=== PATIENT | female | born 1990 | race Caucasian/White ===

== ENCOUNTER 2021-09-22 17:48 | Emergency (ER) | payer OTHER, SELFPAY ==
[2021-09-22] VITALS (7 sets, daily range): BP systolic 110–133; BP diastolic 56–76; PULSE 59–73; RESP 14–16; TEMP 36.4; O2SAT 98–100; BMI 30.4
[2021-09-22 20:00] LABS: Alanine Aminotransferase 33 IU/L (<35); Albumin 4.7 g/dL (3.5-5.0); Albumin Globulin Ratio 1.3 (1.0-2.8); Alkaline Phosphatase 68 U/L (38-126); Aspartate Aminotransferase 29 IU/L (14-36); Bilirubin Total 0.4 mg/dL (0.2-1.3); Blood Urea Nitrogen 7 mg/dL (7-17); Calcium 9.5 mg/dL (8.4-10.2); Carbon Dioxide 25 mmol/L (22-32); Chloride 103 mmol/L (98-107); Estimated Glomerular Filt Rate > 60 mL/min (>60); Globulin 3.6 g/dL (1.7-4.1); Glucose 95 mg/dL (70-100); HEMOLYSIS < 15 (0-50); Lipase 78 U/L (23-300); Potassium 4.2 mmol/L (3.4-5.1); Sodium 140 mmol/L (137-145); Total Protein 8.3 g/dL (6.3-8.2)
[2021-09-22 20:01] LABS: Add Manual Diff / Slide Review NO; Basophils Absolute Auto 100 /uL (0-100); Basophils Percent Auto 1.4 % (0-2); Eosinophils Absolute Auto 200 /uL (0-450); Eosinophils Percent Auto 2.5 % (2-4); Hematocrit 38.2 % (36-46); Hemoglobin 13.2 g/dL (12.0-16.0); Lymphocytes Absolute Auto 2200 /uL (1100-4500); Lymphocytes Percent Auto 34.2 % (25-40); Mean Corpuscular HGB Conc 34.6 % (30-36); Mean Corpuscular Hemoglobin 29.3 PG (26-34); Mean Corpuscular Volume 84.8 fL (80-100); Monocytes Absolute Auto 400 /uL (0-900); Monocytes Percent Auto 6.8 % (3-14); Neutrophils Absolute Auto 3500 /uL (1500-7000); Neutrophils Percent Auto 55.1 % (50-75); Platelet Count 335 X10^3/uL (150-400); Red Cell Distribution Width 12.8 % (11.6-14.8); White Blood Cell Count 6.4 X10^3/uL (4.5-11.0)
[2021-09-22] MEDS: KETOROLAC 30 MG/ML VIAL 15 MG IV (23:27)
--- NOTE | 2021-09-22 23:30 | ED_ITS ---
HPI - Abdominal Pain General Chief Complaint: Abdominal Pain Stated Complaint: Sent from urgent, has unusual stomach bubble Time Seen by Provider: 09/22/21 18:56 Source: patient Mode of arrival: Ambulatory Limitations: no limitations History of Present Illness HPI narrative: This is a 30-year-old female comes in with complaint of left flank and abdominal pain that started the last several days it has been intermittent waxing and waning in intensity it was a sudden onset. No fevers or chills. She has had some nausea no vomiting. No diarrhea constipation. She has an appreciate any hematuria, dysuria urgency or frequency. No vaginal bleeding or discharge. She has had a kidney stone very remotely and does not recall if this is similar. She takes medications for mood. Patient denies any allergies. No tobacco, alcohol or illicit. She came here today because her primary care physician did x-ray and saw a weird bubble on her abdominal x-ray. Related Data Previous Rx's Medication Instructions Recorded ciprofloxacin HCl 500 mg tablet 500 mg PO Q12H #20 tab 09/23/21 phenazopyridine 100 mg tablet 100 mg PO TID PRN #6 tab 09/23/21 (Pyridium) Allergies Allergy/AdvReac Type Severity Reaction Status Date / Time No Known Drug Allergies Allergy Verified 09/22/21 18:01 Review of Systems Review of Systems ROS Unobtainable: All systems reviewed & are unremarkable except as noted in HPI and below Patient History Social History Smoking Status: Former smoker Smoking Status: Former smoker Substance Use Type: does not use Exam Narrative Exam Narrative: GENERAL: Alert and oriented x three, female in mild distress. HEENT: Head normocephalic, atraumatic, EOMI, pupils reactive, face symmetric, moist mucous membranes NECK: Supple, full range of motion CARDIOVASCULAR: Regular rate and rhythm without murmurs, rubs or gallops. RESPIRATORY: Breath sounds equal bilaterally, no wheezes rales or rhonchi. ABDOMEN: Soft, nontender. Normoactive bowel sounds all 4 quadrants. No guarding or rebound, rigidity, no mass : No CVA tenderness EXTREMITIES: Normal range of motion, no clubbing or edema. Neurovascularly intact NEUROLOGICAL: Cranial nerves II through XII grossly intact. Moving all extremities SKIN: Warm, dry, no petechiae, no rashes or lesions. Initial Vital Signs Initial Vital Signs: Vital Signs Temperature 97.6 F 09/22/21 18:02 Pulse Rate 73 09/22/21 18:02 Respiratory Rate 16 09/22/21 18:02 Blood Pressure 133/76 09/22/21 18:02 Pulse Oximetry 100 09/22/21 18:02 Course Orders Ordered: Discontinued Medications Ciprofloxacin (Ciprofloxacin 250 Mg Tablet) 500 mg PO NOW ONE Stop: 09/23/21 02:00 Last Admin: 09/23/21 02:06 Dose: 500 mg Documented by: [email or web address] Ketorolac Tromethamine (Ketorolac 30 Mg/Ml Vial) 15 mg IV NOW ONE Stop: 09/22/21 23:24 Last Admin: 09/22/21 23:27 Dose: 15 mg Documented by: NIDA Phenazopyridine HCl (Phenazopyridine 100 Mg Tablet) 100 mg PO NOW ONE Stop: 09/23/21 02:00 Last Admin: 09/23/21 02:06 Dose: 100 mg Documented by: [email or web address] Reevaluation(s) Reevaluation #1: Patient states she is now having some dysuria. Discussed her findings today, possible infection she does have some bacteria in her urine and blood cells. No other clear cause was found she with flank pain which treat her for a pyelonephritis at this time. Patient would like to also take some Pyridium. Patient was given 1st dose of oral antibiotic with return precautions. Time: 02:02 Vital Signs Vital signs: Vital Signs - 8 hr 09/22/21 21:35 09/22/21 22:00 09/22/21 22:30 Pulse Rate 66 59 L 66 Respiratory Rate 16 Blood Pressure 121/66 113/56 L 110/67 Pulse Oximetry 100 99 99 09/22/21 23:00 Pulse Rate 66 Respiratory Rate Blood Pressure 117/65 Pulse Oximetry 98 MDM - Abdominal Pain Lab Data Result diagrams: 09/22/21 19:30 09/22/21 19:30 Labs: Lab Results 09/22/21 09/22/21 09/22/21 Range/Units 19:30 19:30 23:32 WBC 6.4 (4.5-11.0) X10^3/uL RBC 4.50 (4.0-5.2) X10^6/uL Hgb 13.2 (12.0-16.0) g/dL Hct 38.2 (36-46) % MCV 84.8 (80-100) fL MCH 29.3 (26-34) PG MCHC 34.6 (30-36) % RDW 12.8 (11.6-14.8) % Plt Count 335 (150-400) X10^3/uL Neut % (Auto) 55.1 (50-75) % Lymph % (Auto) 34.2 (25-40) % [place] % (Auto) 6.8 (3-14) % Eos % (Auto) 2.5 (2-4) % Baso % (Auto) 1.4 (0-2) % Neut # (Auto) 3500 (0545-2775) /uL Lymph # (Auto) 2200 (8354-2203) /uL [place] # (Auto) 400 (0-900) /uL Eos # (Auto) 200 (0-450) /uL Baso # (Auto) 100 (0-100) /uL Sodium 140 (137-145) mmol/L Potassium 4.2 (3.4-5.1) mmol/L Chloride 103 (98-107) mmol/L Carbon Dioxide 25 (22-32) mmol/L BUN 7 (7-17) mg/dL Creatinine 0.78 (0.52-1.04) mg/dL Estimated GFR > 60 (>60) mL/min BUN/Creatinine Ratio 9.0 (6-22) Glucose 95 (70-100) mg/dL Calcium 9.5 (8.4-10.2) mg/dL Total Bilirubin 0.4 (0.2-1.3) mg/dL AST 29 (14-36) IU/L ALT 33 (<35) IU/L Alkaline Phosphatase 68 (38-126) U/L Total Protein 8.3 H (6.3-8.2) g/dL Albumin 4.7 (3.5-5.0) g/dL Globulin 3.6 (1.7-4.1) g/dL Albumin/Globulin Ratio 1.3 (1.0-2.8) Lipase 78 (23-300) U/L Urine RBC 5-10/hpf H (0-5/HPF) Urine WBC 0-1/hpf (0-5/HPF) Ur Squamous Epith Cells 1-5 /hpf (0-5/HPF) Urine Bacteria Few (2-10) H (None) Urine Mucus 4+ H (Negative) Ur Culture Indicated? Culture not indicate Micro UA Comment * Point of care testing: Point of Care Testing Test Results Negative Urine Dip Bedside Urine Glucose Negative Bedside Urine Bilirubin - Negative Bedside Urine Ketone + 15 Urine Specific [place] 1.025 Bedside Urine Occult Blood ++ Bedside Urine pH 6.0 Bedside Urine Protein - Negative Bedside Urine Urobilinogen - Negative Bedside Urine Nitrite - Negative Bedside Urine Leukocytes - Negative Esterase Imaging Data CT scan - abdomen/pelvis: Radiologist's Impression: Launch?[address] [address] [address] Scan Report Signed Patient: Bailey Barnett MR#: [id number] : 1990 Acct:[id number] Age/Sex: 30 / F Date of Service: 09/23/21 Loc: ED Accession Number: [id number] ?? Procedure: CT kidney ureter bladder (KUB) Ordering Provider: Amelia Sweet D.O. PROCEDURE:? CT KIDNEY URETER BLADDER (KUB) ? INDICATIONS:? left flank/abd pain ? TECHNIQUE:? Axial sections were acquired from the lung bases to the pubic symphysis.? Coronal and sagittal reformats were performed.? For radiation dose reduction, the following was used: ?automated exposure control, adjustment of mA and/or kV according to patient size.? ? COMPARISON:? None. ? FINDINGS:? Image quality:? Excellent.? ? Lung bases:? Lung bases are clear. Heart:? Heart is normal in size. ? URINARY: Right Kidney and Ureter: ? No stones or hydronephrosis.? No hydroureter.? ? Left Kidney and Ureter: ? No stones or hydronephrosis.? No hydroureter. ? Bladder:? Normal wall thickness. No stones. ? ? ? ABDOMEN: Liver:? Noncontrast evaluation of the liver demonstrates no discrete? mass. Gallbladder:? Within normal limits without calcified gallstones.? ? Biliary ducts:? No biliary ductal dilatation.? ? Pancreas:? Unremarkable.? ? Spleen:? Normal in size.? ? Adrenal Glands:? No adrenal nodules.? ? ? Stomach and Bowel:? Stomach, small bowel loops, and colon are normal in caliber and wall thickness.? The appendix is normal in appearance.? There is moderate stool distention throughout the colon which may reflect constipation. Peritoneum:? No abnormal intraperitoneal fluid.? No free air.? ? Ventral Wall: ? No hernia.? Abdominal Nodes:? No retroperitoneal or mesenteric adenopathy by size criteria.? Vessels:? Aorta and inferior vena cava are normal in size.? ? PELVIS: Pelvic Organs:? Unremarkable.? ? Pelvic Nodes: No enlarged lymph nodes.? Miscellaneous: No inguinal hernias identified. ? ? ? Bones:? Visualized osseous structures demonstrate no suspicious focal lesions. ? IMPRESSION:? ? 1. No definite acute intra-abdominal abnormality.? Specifically, no evidence of nephrolithiasis or obstructive uropathy.? ? ? Dictated by: Marcus Ponce M.D. on 09/23/2021 at 0:47 ? ? Approved by: Marcus Ponce M.D. on 09/23/2021 at 0:49?? MDM Narrative Medical decision making narrative: This is a 30-year-old female comes in with complaint of left flank and abdominal pain for about 2 days. She was seen by primary care for an unusual stomach bubble on x-ray. Suspect she may have a kidney stone after discussion patient would like to pursue CT imaging. She does have some hematuria and ketones on urine, patient has bacteria on micro. Labs are otherwise reassuring she had some Toradol department with improvement and resolution of her pain. Patient on re-evaluation notes that she has also been having some dysuria as the night progresses. Plan for antibiotics, Pyridium treatment for pyelonephritis no other acute causes are found on her lab work or CT imaging today. Discharge Plan Departure Patient Disposition: Home Clinical Impression: Abdominal pain, Pyelonephritis Instructions: DI for Kidney Infection Activity Restrictions/Additional Instructions: Follow-up with your physician for recheck. Your labs and imaging do not show any major changes. They did show some mild dehydration and a small amount of blood in your urine. It was sent for culture but does show signs of infection. Please take antibiotics until completely gone. You may take Pyridium 1 tablet every 8 hours as needed for dysuria or burning with urination and bladder spasm. Prescription sent to [facility] in [place] Please return for fevers, rapidly worsening abdominal, back or flank pain, persistent vomiting, black or bloody stools or other new or concerning symptoms. Prescriptions: New ciprofloxacin HCl 500 mg tablet 500 mg PO Q12H Qty: 20 0RF phenazopyridine [Pyridium] 100 mg tablet 100 mg PO TID PRN (Reason: pain) Qty: 6 0RF
--- NOTE | 2021-09-23 00:04 | DI.CT.S_ITS ---
PROCEDURE: CT KIDNEY URETER BLADDER (KUB) INDICATIONS: left flank/abd pain TECHNIQUE: Axial sections were acquired from the lung bases to the pubic symphysis. Coronal and sagittal reformats were performed. For radiation dose reduction, the following was used: automated exposure control, adjustment of mA and/or kV according to patient size. COMPARISON: None. FINDINGS: Image quality: Excellent. Lung bases: Lung bases are clear. Heart: Heart is normal in size. URINARY: Right Kidney and Ureter: No stones or hydronephrosis. No hydroureter. Left Kidney and Ureter: No stones or hydronephrosis. No hydroureter. Bladder: Normal wall thickness. No stones. ABDOMEN: Liver: Noncontrast evaluation of the liver demonstrates no discrete mass. Gallbladder: Within normal limits without calcified gallstones. Biliary ducts: No biliary ductal dilatation. Pancreas: Unremarkable. Spleen: Normal in size. Adrenal Glands: No adrenal nodules. Stomach and Bowel: Stomach, small bowel loops, and colon are normal in caliber and wall thickness. The appendix is normal in appearance. There is moderate stool distention throughout the colon which may reflect constipation. Peritoneum: No abnormal intraperitoneal fluid. No free air. Ventral Wall: No hernia. Abdominal Nodes: No retroperitoneal or mesenteric adenopathy by size criteria. Vessels: Aorta and inferior vena cava are normal in size. PELVIS: Pelvic Organs: Unremarkable. Pelvic Nodes: No enlarged lymph nodes. Miscellaneous: No inguinal hernias identified. Bones: Visualized osseous structures demonstrate no suspicious focal lesions. IMPRESSION: 1. No definite acute intra-abdominal abnormality. Specifically, no evidence of nephrolithiasis or obstructive uropathy. Dictated by: Marcus Ponce M.D. on 09/23/2021 at 0:47 Approved by: Marcus Ponce M.D. on 09/23/2021 at 0:49
[2021-09-23 01:42] LABS: Bacteria Urine Few (2-10); Mucus Urine 4+ (Negative); RBC Urine 5-10/HPF (0-5/HPF); Squamous Epithelial Cell Urine 1-5 /HPF (0-5/HPF); WBC Urine 0-1/HPF (0-5/HPF)
[2021-09-23] MEDS: PHENAZOPYRIDINE 100 MG TABLET PO (02:06)
[2021-09-23] MEDS: CIPROFLOXACIN 250 MG TABLET 500 MG PO (02:06)
== END 2021-09-23 02:12 | disposition home or self-care (01) ==
PROVIDERS: Emergency Provider Emergency Medicine
DX: N12 Tubulo-interstitial nephritis, not specified as acute or chronic (principal); R10.9 Unspecified abdominal pain; R11.0 Nausea; R30.0 Dysuria; Z87.442 Personal history of urinary calculi
CPT/HCPCS: 36415; 74176; 80053; 81003; 81015; 81025; 83690; 85025; 87086; 96374; 99284; J1885